=== PATIENT | female | born 1975 | race Two or more races ===

== ENCOUNTER 2025-10-04 11:01 | Emergency (ER) | payer SELFPAY ==
[~2025-10-04] VITALS: Ht 165.1 cm; Wt 66.8 kg
[2025-10-04] MEDS ORDERED: ALBU108A5 IN (13:05)
[2025-10-04] MEDS ORDERED: BENZ100C97 PO (13:05)
[2025-10-04] MEDS ORDERED: AZIT-43 PO (13:05)
[2025-10-04] MEDS ORDERED: PSEU120T18 PO (13:05)
--- NOTE | 2025-10-04 13:06 | ED.PDOC ---
SOB-HPI HPI Comments The patient presents with symptoms consistent with a chest cold ongoing for approximately one week before this visit. The patient reports difficulty breathing from the chest, morning symptoms, headache, and productive cough with phlegm but no blood. The patient has been using [id number] cough and cold medications without improvement. No fever has developed. The patient's sister is present in the house but does not contribute to the history. No significant past medical history or surgical history is reported. The patient denies smoking and has no known allergies. No other medications or relevant family or social history are noted. Denies fevers chills night sweats unintentional weight loss Denies persistent chest pain, shortness of breath, leg swelling Denies history of asthma nor any breathing conditions Denies history of pneumonia Denies recent international travel Chief Complaint: Flu like Time Seen by MD: 11:24 Reviewed notes: Nurses Notes, Medications, Allergies Information Source: Patient Mode of Arrival: Ambulatory Severity: Moderate Timing: Days Duration: Since onset, Days Context: Spontaneous Onset PE Risk Factors: None History of: None Prehospital treatment: None Associated Signs and Symptoms: Cough If cough with SOB: Productive Past Medical History PAST MEDICAL HISTORY: Denies Surgical History: Denies all surgeries PUBLISHING AGENT History: No Pertinent PUBLISHING AGENT History Family History Family History: Reviewed,noncontributory to illness, Unknown Social History Smoker: Non-Smoker Alcohol: Denies ETOH Use Drugs: Denies Drug Use Lives In: Home Constitutional: denies: chills, diaphoresis, fatigue, fever, malaise, sweats, weakness, others EENTM: denies: blurred vision, double vision, ear bleeding, ear discharge, ear drainage, ear pain, ear ringing, eye pain, eye redness, hearing loss, mouth pain, mouth swelling, nasal discharge, nose bleeding, nose congestion, nose pain, photophobia, tearing, throat pain, throat swelling, voice changes, others Respiratory: reports: cough, shortness of breath; denies: hemoptysis, orthopnea, SOB at rest, SOB with excertion, stridor, wheezing, others Cardiovascular: denies: chest pain, dizzy spells, diaphoresis, Dyspnea on exertion, edema, irregular heart beat, left arm pain, lightheadedness, palpitations, PND, syncope, others Gastrointestinal: denies: abdomen distended, abdominal pain, blood streaked bowels, constipated, diarrhea, dysphagia, difficulty swallowing, hematemesis, melena, nausea, poor appetite, poor fluid intake, rectal bleeding, rectal pain, vomiting, others Genitourinary: denies: abnormal vagina bleeding, burning, dyspareunia, dysuria, flank pain, frequency, hematuria, incontinence, pain, , vagina discharge, urgency, others Neurological: reports: headache; denies: dizziness, fainting, left sided numbness, left sided weakness, numbness, paresthesia, pre-existing deficit, right sided numbness, right sided weakness, seizure, speech problems, tingling, tremors, weakness, others Musculoskeletal: denies: back pain, gout, joint pain, joint swelling, muscle pain, muscle stiffness, neck pain, others Integumetry: denies: bruises, change in color, change in hair/nails, dryness, laceration, lesions, lumps, rash, wounds, others Allergic/Immunocompromised: denies: Difficulty Healing, Frequent Infections, Hives, Itching, others Hematologic/Lymphatic: denies: anemia, blood clots, easy bleeding, easy bruising, swollen glands, others Endocrine: denies: excessive hunger, excessive sweating, excessive thirst, excessive urination, flushing, intolerance to cold, intolerance to heat, unexp lained weight gain, unexplained weight loss, others Psychiatric: denies: anxiety, bipolar disorder, depression, hopeless, panic disorder, schizophrenia, sleepless, suicidal, others All Other Systems: Reviewed and Negative Physical Exam Exam Comments no wheezing, no rhonchi, currently not in tripod position, the patient is able to speak easily in full sentences, mmm color, uvula is midline. General Appearance: No Apparent Distress, Normal HEENT: Normal ENT Inspection, Pharynx Normal, TMs Normal Neck: Full Range of Motion, Non-Tender, Normal, Normal Inspection Respiratory: Chest Non-Tender, Lungs Clear, No Accessory Muscle Use, No Respiratory Distress, Normal Breath Sounds Cardiovascular: No Edema, No JVD, No Murmur, No Gallop, Normal Peripheral Pulses, Regular Rate/Rhythm Breast Exam: Deferred Gastrointestinal: No Organomegaly, Non Tender, No Pulsatile Mass, Normal Bowel Sounds, Soft Genitalia: Deferred Pelvic: Deferred Rectal: Deferred Extremities: No calf tenderness, Normal capillary refill, Normal inspection, Normal range of motion, Non-tender, No pedal edema Musculoskeletal : Apperance: Normal Neurologic: Alert, fruit picker II-XII nml as Tested, No Motor Deficits, Normal Affect, Normal Mood, No Sensory Deficits Cerebellar Function: Normal Reflexes: Normal Skin: Dry, Normal Color, Warm Lymphatic: No Adenopathy Was a procedure done? Was a procedure done?: No Differential Dx Differential Diagnosis: Other X-Ray, Labs, Meds, VS Vital Signs Date Time Temp Pulse Resp B/P (MAP) Pulse Ox O2 Delivery O2 Flow Rate FiO2 10/04/25 13:10 98.7 78 16 142/89 (106) 96 98.7 10/04/25 13:10 64 16 97 Room Air 10/04/25 11:07 Room Air* 0 21 10/04/25 11:04 97.8 81 18 133/80 95 97.8 X-Ray, Labs, Meds, VS Comment Patient arrives alert and oriented, ABC's intact, afebrile, vital signs stable, saturating well in room air The patient presents with a one-week history of cough with phlegm, headache, and chest tightness without fever or hemoptysis. No significant past medical history, allergies, or tobacco use. Hypertension noted on exam. Symptoms are consistent with a lower respiratory tract infection without clear evidence of bacterial pneumonia, but empiric coverage for atypical organisms is reasonable given persistent symptoms and lack of improvement with [id number] medications. - Prescribe azithromycin for five days - Prescribe benzonatate one tablet three times daily as needed for cough - Prescribe Mucinex one tablet twice daily for ten days - Prescribe albuterol inhaler two puffs every four to six hours as needed Follow-up/Disposition: Patient instructed to return for further evaluation if symptoms do not improve. Additional MDM Review of External, Non-ED records: External records reviewed. Discussion with independent historian (EMS, family) history obtained from the patient/parents (if applicable) at bedside Chronic conditions affecting care: None Social determinants of health affecting care: None Consideration of admission (observation or admission): I considered escalation of care to admission for this patient, however given the reassuring workup, the patient is safe for outpatient management. Discussion with the Radiology: No Tests considered but not performed: Prescription medication considered but not given: Time of 1ST Reevaluation: 11:55 Reevaluation 1ST: Unchanged Patient Education/Counseling: Diagnosis, Treatment, Prognosis Family Education/Counseling: No Family Present SEPSIS Sepsis Screen Date sepsis recognized/suspect: Oct 04, 2025 Time Sepsis recognized/suspect: 1106 Recent Procedure: No On Antibiotic Therapy: No Respiratory Rate >20: No Heart Rate >90: No Temp<36 C (96.8 F) or >38.3 C: No SBP <90 or MAP <65 mmHG: No New Acute Mental Status Change: No Is the patient on CPAP, BIPAP,: No Vital Signs Date Time Temp Pulse Resp B/P (MAP) Pulse Ox O2 Delivery O2 Flow Rate FiO2 10/04/25 13:10 98.7 78 16 142/89 (106) 96 98.7 10/04/25 13:10 64 16 97 Room Air 10/04/25 11:07 Room Air* 0 21 10/04/25 11:04 97.8 81 18 133/80 95 97.8 Departure 1 Departure Time of Disposition: 13:05 Impression: Primary Impression: Bronchitis Disposition: HOME / SELF CARE / HOMELESS Condition: Stable Additional Instructions: Discharge Note: Continue on your medications. Do not drive when taking narcotics. Drink plenty of fluids. Follow up with your primary Dr. Take your prescriptions as ordered. If your condition becomes worse call and follow up with your primary Dr. for instructions or return to the ER if needed. Thank you for visiting [facility]. e-Prescriptions Albuterol Sulfate (Albuterol Sulfate Hfa) 108 Mcg/Act Aer 108 MCG IN Q6HP PRN for 30 Days, #1 AER 0 Refills Prov: ULISES WRIGHT NP 10/04/25 Pseudoephedrine-Guaifenesin (Mucinex D) 1 Tab Tab 1 TAB PO BID for 10 Days, #20 TAB 0 Refills Prov: ULISES WRIGHT NP 10/04/25 Benzonatate (Benzonatate) 100 Mg Cap 1 CAP PO TID for 10 Days, #30 CAP 0 Refills Prov: ULISES WRIGHT NP 10/04/25 Azithromycin (Azithromycin) 250 Mg Tab 250 MG PO DAILY MDD 500 for 5 Days, #6 TAB 0 Refills 2 TABLETS ORALLY ON DAY ONE, THEN 1 TABLET ORALLY DAILY FOR 4 DAYS Prov: ULISES WRIGHT NP 10/04/25 Discharged With: Self Critical Care Note Critical Care Time?: No Stability Stability form required: No Heart Score Heart Score: Heart Score Response (Comments) Value History N/A 0 EKG N/A 0 Age N/A 0 Risk Factors N/A 0 Troponin N/A 0 Total 0 I personally scribed for ULISES WRIGHT NP ([email or web address]) on 10/04/25 at 14:53. Electronically submitted by Pavel Phillips ([email or web address]). ULISES WRIGHT NP Oct 04, 2025 13:06
[2025-10-04 13:10] VITALS: BP 142/89; PULSE 64; RESP 16; TEMP 98.7; O2SAT 97
== END 2025-10-04 13:12 | disposition home or self-care (01) ==
LOC: ER 11:01
DX: J40 Bronchitis, not specified as acute or chronic (principal)